=== PATIENT | female | born 1965 | race Caucasian/White ===

== ENCOUNTER → 2019-09-05 11:06 | Outpatient (POV) | payer OTHER, SELFPAY | PROVIDERS: Visit Provider Dermatology | DX: Z00.00 Encounter for general adult medical examination without abnormal findings (principal) ==

== ENCOUNTER → 2020-07-09 16:12 | Outpatient (CLI) | payer OTHER, SELFPAY ==
[2020-07-10 22:02] LABS: Covid-19 Nasal PCR Sendout Lex NOT DETECTED
== END ==
PROVIDERS: PCP Family Medicine; Visit Provider Family Medicine
DX: Z03.818 Encounter for observation for suspected exposure to other biological agents ruled out (principal)
CPT/HCPCS: U0004

== ENCOUNTER 2022-05-05 13:10 | Emergency (ER) | payer OTHER, SELFPAY ==
[2022-05-05] VITALS (7 sets, daily range): BP systolic 149–174; BP diastolic 48–88; PULSE 53–61; RESP 15–16; TEMP 36.8; O2SAT 94–100; BMI 26.5; BMI 24.7
--- NOTE | 2022-05-05 13:20 | CT_ITS ---
FINAL REPORT TECHNIQUE: Axial CT images were performed through the head. Coronal reformatted images were submitted. This study was performed with techniques to keep radiation doses as low as reasonably achievable (ALARA). Individualized dose reduction techniques using automated exposure control or adjustment of mA and/or kV according to the patient's size were employed. CLINICAL HISTORY: Pt fell @ hospital steps, CORONA w pain @ occipital lobe, CORONA in frontal lobe. C/o tunnel vision immediately after fall. FINDINGS: There is mild to moderate atrophy. There is proportionate ventriculomegaly. There is mild decreased attenuation in the deep white matter. There is no evidence of hemorrhage. There is no mass or edema identified. There is no abnormal extra-axial fluid seen. The sinuses are well aerated. There is a posterior midline scalp hematoma. There is no acute osseous abnormality. IMPRESSION: No acute intracranial process. Reviewed, Interpreted and Dictated by Lior Ahn MD Transcribed by Jeferson Moon Authenticated and [facility]
--- NOTE | 2022-05-05 13:45 | HMH.EDGENADL ---
Discharge Plan Disposition Patient Disposition: Home, Self-Care Condition: Good Prescriptions Prescriptions: New mrxvupmeaf-izwrwriymoxrt-bban [Fioricet] 50-300-40 mg capsule 1 cap PO Q6H PRN (Reason: pain) Qty: 7 0RF Referrals Follow up/Referrals: Janes Perez MD [Primary Care Provider] - See instructions Activity Restrictions/Add. Instructions Additional Instructions/Restrictions: Fioricet as needed for pain. Additional instructions for HEADACHE: See your physician as soon as possible for further evaluation. Return immediately if worsening headache, vomiting, problems with vision or speech, fever, numbness or weakness of the extremities, neck pain or stiffness. Additional instructions regarding BLOOD PRESSURE: One or more of your blood pressure readings elevated today. Please contact your primary care physician for further evaluation or treatment of your blood pressure. Additional instructions for CONTROLLED SUBSTANCES: You have been prescribed a medication that is a controlled substance. Controlled substances include pain medications known as opiates and sedative nerve medications known as benzodiazepines. Tramadol, fioricet, and gabapentin are also controlled substances. Some common opiates include: Codeine (such as Tylenol #3) Hydrocodone (Vicodin, Lortab, Lorcet, Hyder) Oxycodone (Percocet, Percodan, Oxycodone, Oxy IR) Some common benzodiazepines include: Diazepam (Valium) Lorazepam (Ativan) Alprazolam (Xanax) Clonazepam (Klonopin) Oxazepam (Serax) All of these controlled substances are highly addictive and frequently abused. Misuse can and frequently does lead to addiction as well as overdose and . Medication should be stored in a locked cabinet or other secure storage unit. Do not store the medication in a motor vehicle. Short term supplies, 3 days or less, are prescribed because of the highly addictive nature of the medication. Any of the controlled substance medication NOT taken should be disposed of properly and NOT SAVED. The recommended method of disposing of unused medications is: Place the medicines in a sealable plastic bag. If the medicine is a solid, crush it or add water to dissolve it. Add something undesirable (cat litter, coffee grounds, etc.) Dispose of sealed bag in household trash Do not flush or pour unused medicines down a sink or drain. Controlled substances should not be shared, given away or sold. Because of the addictive nature and frequent abuse, these medications are sometimes stolen. These medications should be kept in a safe place where they cannot be stolen. Do not keep them in your car or purse. Lost or stolen prescriptions for controlled substances WILL NOT BE REFILLED in this emergency department, regardless of whether a police report was filed. Clinical Impressions Clinical Impression: Headache, Elevated blood pressure reading Discharge ED Provider: Refugio Guidry General Adult HPI General Chief complaint: Headache Stated complaint: Severe CORONA Time Seen by Provider: 05/05/22 13:35 History of Present Illness HPI narrative: Patient states that she awakened on Wednesday, 2 days ago, with a headache. She initially thought it was a sinus headache, because she has had those before. However, the headache has never gone away and has worsened to a severe headache. She locates it is predominantly on the top of her head but also going down her neck. She says that she took Excedrin Migraine which seems to have helped some. Pain is currently 7/10. She does not get frequent or severe headaches typically. She has not had migraines. Headache is associated with nausea, but no vomiting or diarrhea. Denies URI symptoms. She took a COVID test that was negative. She feels hot like she might of had a fever, but has not taken her temperature. Denies visual disturbance or photophobia. No numbness or weakness of the extremities. No injury. Related D
[2022-05-05 14:17] LABS: Chloride 105 mmol/L (98-107); Potassium 3.6 mmoL/L (3.5-5.1); Sodium 143 mmol/L (136-145)
[2022-05-05 14:18] LABS: Basophils # 0.1 K/mm3 (0-0.2); Basophils % 0.8 % (0.1-2.0); Eosinophils # 0.1 K/mm3 (0.0-0.4); Eosinophils % 1.2 % (0.1-12.0); Hematocrit 38.5 % (37.0-47.0); Hemoglobin 12.8 g/dL (12.2-16.2); Lymphocytes # 2.2 K/mm3 (0.7-4.5); Lymphocytes % 31.9 % (10-50); Mean Corpuscular HGB Conc 33.3 g/dL (31.8-35.4); Mean Corpuscular Hemoglobin 31.1 pg (27.0-31.2); Mean Corpuscular Volume 93.7 fl (81-99); Mean Platelet Volume 8.5 fl (7.4-10.4); Monocytes # 0.3 K/mm3 (0.1-1.0); Monocytes % 5.1 % (1.7-9.3); Neutrophils # 4.1 K/mm3 (1.8-7.8); Neutrophils % 60.9 % (37.0-80.0); Platelet Count 307 K/mm3 (142-424); Red Blood Count 4.11 M/mm3 (4.20-5.40); Red Cell Distribution Width 12.7 % (11.5-17.5); White Blood Count 6.8 K/mm3 (4.8-10.8)
[2022-05-05 14:20] LABS: Alanine Aminotransferase 20 U/L (12-78); Albumin Level 4.5 g/dl (3.5-5.0); Albumin/Globulin Ratio 1.6 (1.1-1.8); Alkaline Phosphatase 114 U/L (38-126); Anion Gap 13.6 mEq/L (5-15); Aspartate Amino Transferase 27 U/L (14-36); Blood Urea Nitrogen 12 mg/dl (7-17); Calcium 8.8 mg/dl (8.4-10.2); Carbon Dioxide 28 mmol/L (22.0-30.0); Creatinine Clearance Estimated 104 mL/min (50-200); Estimated Glomerular Filt Rate 103 ml/min (>60); GFR (African American) 125 ML/MIN (>60); Globulin 2.8 g/dL (1.3-3.2); Glucose 81 mg/dl (74-100); Total Protein,Serum 7.3 g/dl (6.3-8.2)
[2022-05-05 14:21] LABS: Bilirubin,Total < 0.1 mg/dl (0.2-1.3)
[2022-05-05 14:26] LABS: C-Reactive Protein 1.6 mg/L (0-4)
[2022-05-05 14:28] LABS: Lactic Acid 0.8 mmol/L (0.7-2.1)
--- NOTE | 2022-05-05 14:30 | PC.NURSE ---
pt's family at bedside. offered warm blankets pt declined
--- NOTE | 2022-05-05 14:31 | CT_ITS ---
FINAL REPORT TECHNIQUE: Axial CT images were performed through the head. Coronal reformatted images were submitted. This study was performed with techniques to keep radiation doses as low as reasonably achievable (ALARA). Individualized dose reduction techniques using automated exposure control or adjustment of mA and/or kV according to the patient's size were employed. CLINICAL HISTORY: Weakness FINDINGS: The ventricles are normal in size. There is no evidence of hemorrhage. There is no mass or edema identified. There is no abnormal extra-axial fluid seen. There are mild changes of chronic left maxillary and right frontal sinusitis. IMPRESSION: No acute intracranial process. Chronic sinusitis as above. Reviewed, Interpreted and Dictated by Lior Ahn MD Transcribed by Eufemia Baumann Authenticated and . [facility]
--- NOTE | 2022-05-05 14:43 | PC.NURSE ---
pt to restroom
[2022-05-05 14:47] LABS: Erythrocyte Sedimentation Rate 16 mm/hr (0-30)
[2022-05-05 15:00] LABS: Procalcitonin < 0.030 ng/mL (0.0-2.0)
--- NOTE | 2022-05-05 15:36 | PC.NURSE ---
pt and family updated on plan of care
--- NOTE | 2022-05-05 16:03 | PC.NURSE ---
gave pt a cup of water ER gave clearance for intake
[2022-05-05 16:11] LABS: Coronavirus 19, PCR Not Detected (NotDetected); Influenza A, PCR Not Detected (NotDetected); Influenza B, PCR Not Detected (NotDetected)
== END 2022-05-05 17:10 | disposition home or self-care (01) ==
PROVIDERS: Emergency Provider Emergency Medicine; PCP Family Medicine
DX: R51.9 Headache, unspecified (principal); R03.0 Elevated blood-pressure reading, without diagnosis of hypertension
CPT/HCPCS: 70450; 80053; 83605; 84145; 85025; 85651; 86140; 87040; 96374; 96375; 99284; C9803; J2405; U0003; U0005

== ENCOUNTER 2023-06-03 09:01 | Day surgery (SDC) | payer BC, SELFPAY ==
[2023-05-13 10:13] VITALS: BMI 23.0
[2023-06-03 09:30] VITALS: BP 142/70; PULSE 59; RESP 18; TEMP 36.6; O2SAT 98
--- NOTE | 2023-06-03 09:37 | EXP.ANES.CKL ---
[facility] Disclaimer: The information contained in this section may have been updated after the patient was seen, as this information can be updated by other users. Medical History Gallbladder disease Surgical History History of cervical discectomy History of cholecystectomy History of hysterectomy Family History Other Family history of TIAs Family history of hypothyroidism Family history of stroke Prostate cancer Social History Smoking Status: Never smoker alcohol intake: never substance use type: denies use current occupational status: employed Travel in the last 8 weeks: None [facility] Anesthesia Checklist Patient Identification Patient Identification: Arm Band and Verbal (Name & ) Structural Data Admitted From: Home Planned Operative Procedure/s: Colonoscopy Consent for Planned Operative Procedure(s) Verified: Yes NPO Status Verified Time NPO: 00:00 Additional verifications Anesthesia Reactions: No Airway Assessment Mallampati Score:: Class I C-Spine Mobility Assessed: Yes TMJ Mobility Assessed: Yes Dentition: Good Dentition (Significant overbite) Neurological Assessment Level of Consciousness: Awake Hx Seizures: No Numbness or tingling in extremities: No Anesthesia Plan Anesthesia Risk discussed: Yes Anesthesia Plan: Verified ASA Class: I Anesthesia Type: MAC
[2023-06-03 09:55] VITALS: O2SAT 98
--- NOTE | 2023-06-03 10:08 | HMH.SCOPE ---
Procedure: Date: 06/03/23 Patient Date of :: 1965 Procedure Performed:: Screening colonoscopy Indications:: Screening for colorectal cancer Performing Provider:: Isrrael Gasca MD Referring Provider:: Millie Mejia APRN Sedation:: Propofol Procedure:: After placing the patient in the left lateral decubitus position, the colonoscopy was gently inserted into the rectum and under direct visualization advanced to the cecum which was identified by transillumination in the right lower quadrant, identification of the ileocecal valve, appendiceal orifice, and cecal strap. Color, texture, mucosa, and anatomy of the colon were carefully examined with the scope. Findings:: Anal canal: normal Rectum: normal Sigmoid colon: normal without polyps or inflammatory changes Descending colon: normal without polyps or inflammatory changes Splenic flexure: normal Transverse colon: normal without polyps or inflammatory changes Hepatic flexure: normal Ascending colon: normal without polyps or inflammatory changes Cecum: normal Terminal ileum: not visualized Impression: Normal colonoscopy Recommendations:: Follow up examination in about TEN years or so, sooner if clinically indicated. Complications:: None Estimated blood obtained (mL): 0 Colonoscopy Component Colonoscopy Component Was a colonoscopy performed during today's procedure?: Yes Recommended follow up colonoscopy of at least 10 years?: Yes
[2023-06-03 10:09] VITALS: BP 114/60; PULSE 70; RESP 16; TEMP 36.6; O2SAT 98
[2023-06-03 10:19] VITALS: BP 108/66; PULSE 65; RESP 16; O2SAT 98
[2023-06-03 10:39] VITALS: BP 119/76; PULSE 61; RESP 16; TEMP 36.6; O2SAT 100
== END 2023-06-03 10:45 | disposition home or self-care (01) ==
PROVIDERS: PCP Family Medicine; Visit Provider Internal Medicine Gastroenterology
PROC: (CPT 45378; principal; 2023-06-03 10:00)
DX: Z12.11 Encounter for screening for malignant neoplasm of colon (principal)
CPT/HCPCS: 45378